=== PATIENT | female | born 1995 | race Caucasian/White ===

== ENCOUNTER 2017-06-13 09:05 | Emergency (ER) | payer BC, OTHER ==
[2017-06-13 10:04] VITALS: BP 119/83
--- NOTE | 2017-06-13 10:54 | UC ---
Complaint Female HPI - HPI Summary HPI Summary: pt states she has a new sexual partner. she uses condoms and bCP's. she states that she shaves and has noted some pain in her buttock/vaginal area. she wants to ensure this is not an std. last pm, she also noted uti symptoms-describes as frequent, urgent and mild burn with urination. did have some azo that helped. - History Of Current Complaint Chief Complaint: [facility] Stated Complaint: URINARY/PERSONAL Time Seen by Provider: 06/13/17 09:52 Hx Obtained From: Patient Hx Last Menstrual Period: 06/04/17 ?: No Onset/Duration: Gradual Onset Timing: Constant Pain Intensity: 4 Character: Burning Aggravating Factor(s): Nothing Alleviating Factor(s): Nothing Associated Signs And Symptoms: Negative: Fever, Back Pain, Vaginal Bleeding/ Discharge, Vaginal Discharge - Risk Factors Ectopic Risk Factor: Negative Ovarian Torsion Risk Factor: Negative - Allergies/Home Medications Allergies/Adverse Reactions: Allergies Allergy/AdvReac Type Severity Reaction Status Date / Time No Known Allergies Allergy Verified 06/13/17 09:49 Home Medications: Home Medications Pumpkin Seed Extract/Soy Germ [Azo Bladder Control Capsule] 2 cap PO ONCE PRN [History Confirmed 06/13/17] PMH/Surg Hx/FS Hx/Imm Hx Previously Healthy: Yes - Surgical History Surgical History: None - Family History Known Family History: Negative: Renal Disease - Social History Occupation: Student Lives: Dormitory/Roommates Alcohol Use: Weekly Alcohol Amount: 5 Substance Use Type: None Smoking Status (MU): Never Smoked Tobacco - Immunization History Vaccination Up to Date: Yes Review of Systems Constitutional: Negative Skin: Negative Eyes: Negative ENT: Negative Respiratory: Negative Cardiovascular: Negative Gastrointestinal: Negative Genitourinary: Dysuria, Vaginal/Penile Burning Motor: Negative Neurovascular: Negative Musculoskeletal: Negative Neurological: Negative Psychological: Negative Is Patient Immunocompromised?: No All Other Systems Reviewed And Are Negative: Yes Physical Exam Triage Information Reviewed: Yes Appearance: Well-Appearing Vital Signs: Initial Vital Signs Temp 99.2 F 06/13/17 09:51 Pulse 84 06/13/17 09:51 Resp 18 06/13/17 09:51 BP 119/83 06/13/17 09:51 Pulse Ox 97 06/13/17 09:51 Vital Signs Reviewed: Yes Eye Exam: Normal ENT: Positive: Normal ENT inspection Neck: Positive: Supple, Nontender, No Lymphadenopathy Respiratory: Positive: Lungs clear, Normal breath sounds, No respiratory distress Cardiovascular: Positive: RRR, No Murmur, Pulses Normal Abdomen Description: Positive: Nontender, No Organomegaly, Soft, Other: - gu/ gigi areas noted to be shaved with skin irritation from shaving but not red, hot ,weepy,no lesions. Vagina has mucoid material but no odor or purulent drainage. os closed. cultures obtained. No mass or cmy on bimanual exam. Bowel Sounds: Positive: Present Neurological: Positive: Alert Psychological: Positive: Age Appropriate Behavior Skin Exam: Normal Skin: Positive: Other Diagnostics - Laboratory Diagnostic Studies Completed/Ordered: pelvic cultures pending. Complaint Female Dx - Course Course Of Treatment: pt offered HIV testing but declined. she would like std testing thus gc/chalmydia, affirm/yeast testing/trich=all pending. u/a= leukocytes with culture pending. given s/s's will tx for presumptive uti. gu area c/w abrasions from the shaving. - Differential Dx/Diagnosis Provider Diagnoses: dysuria, abrasions from shaving Discharge - Discharge Plan Condition: Stable Disposition: HOME Prescriptions: Sulfamethox/Trimethoprim DS* [Bactrim DS 800/160 TAB*] 1 tab PO BID 3 Days #6 tab Patient Education Materials: Abrasion (ED), Urinary Tract Infection in Women ( ED) Additional Instructions: FOLLOW UP [facility] IN 5 DAYS FOR A RECHECK OR SOONER IF WORSE STOP SHAVING. YOU MAY APPLY A THIN LAYER OF CREAM SUCH DESITIN FOR COMFORT.
== END 2017-06-13 12:01 | disposition home or self-care (01) ==
LOC: UCCORT 09:05
DX: R30.0 Dysuria (principal); Z32.02 Encounter for pregnancy test, result negative; S30.814A Abrasion of vagina and vulva, initial encounter; Y93.E8 Activity, other personal hygiene; Y93.89 Activity, other specified; Y92.009 Unspecified place in unspecified non-institutional (private) residence as the place of occurrence of the external cause
CPT/HCPCS: 81003; 84702; 87086; 87480; 87491; 87510; 87591; 87661; 99212; G0463